=== PATIENT | female | born 1930 | race Caucasian/White ===

== ENCOUNTER 2020-01-25 09:08 | Observation (INO) | payer MEDICARE, OTHER ==
[2020-01-25 09:54] LABS: #Eosinphils 0.1 thou/uL (0.0-0.7); #Lymphocytes 0.8 thou/uL (1.20-3.40); #Monocytes 0.4 thou/uL (0.11-0.59); #Neutrophils 5.1 thou/uL (1.40-6.50); %Basophils 0.5 % (0.0-1.0); %Eosinophils 1.1 % (0.0-10.0); %Lymphocytes 12.6 % (21.0-51.0); %Monocytes 5.6 % (0.0-10.0); %Neutrophils 80.2 % (42.0-75.0); Hemoglobin 12.9 g/dL (12.0-16.0); Mean Corpuscular HGB CONC 31.5 g/dL (32.0-36.0); Mean Corpuscular Volume 85.6 fL (78.0-98.0); Mean Platelet Volume 9.4 fL (7.4-10.4); Platelet Count 168 thou/uL (130-400); RBC Distribution Width 13.8 % (11.5-14.5); Red Blood Cell (RBC) Count 4.77 mill/uL (4.20-5.40); White Blood Cell (WBC) Count 6.4 thou/uL (4.8-10.8)
[2020-01-25 10:01] LABS: INR-International Normal Ratio 1.3; PTT 28.9 sec (22.9-36.1); Prothrombin Time 16.8 sec (12.0-14.7)
--- NOTE | 2020-01-25 10:01 | RAD ---
AP CHEST: Date: 01/25/2020 HISTORY: Syncope. No comparison. FINDINGS: There are small bilateral effusions, slightly larger on the left. No evidence of vascular congestion or edema. Heart size upper normal. There are prominent chronic appearing parenchymal changes in the upper lung zavala and there are scat tered small nodules in both upper lobes measuring in the 3-5 mm range. Mitral annular calcification. Osseous structures unremarkable. IMPRESSION: 1. Small bilateral effusions, slightly larger on the left, with evidence of left basilar atelectasis . 2. Chronic appearing lung parenchymal changes in the upper lobes with scattered small pulmonary nodu les, probably granuloma. Recommend continued follow-up to ensure stability. POS: AH
[2020-01-25 10:22] LABS: ALT (SGPT) 17 U/L (8-55); AST (SGOT) 30 U/L (5-34); Albumin 3.7 g/dL (3.4-4.8); Alkaline Phosphatase 86 U/L (40-110); Anion Gap 10 mmol/L (10-20); BUN (Urea Nitrogen) 20 mg/dL (9.8-20.1); Bilirubin, Total 0.5 mg/dL (0.2-1.2); Calc. Creatinine Clearance 0 mL/min (70-130); Calcium 8.9 mg/dL (7.8-10.44); Carbon Dioxide 25 mmol/L (23-31); Chloride 99 mmol/L (98-107); Estimated GFR-MDRD 48; Globulin 3.7 g/dL (2.4-3.5); Glucose 114 mg/dL (83-110); Lipase 91 U/L (8-78); Potassium 4.7 mmol/L (3.5-5.1); Protein, Total 7.4 g/dL (6.0-8.3); Sodium 129 mmol/L (136-145)
[2020-01-25] MEDS ORDERED: Iopamidol-370 76% 500 ML 1 ML ONE (10:51)
--- NOTE | 2020-01-25 11:00 | CT ---
CT Abdomen Pelvis W Con: 01/25/2020 10:45 AM CLINICAL INFORMATION: Abdominal pain and constipation COMPARISON: None. TECHNIQUE: Multiple contiguous axial images were obtained and a CT of the abdomen and pelvis with IV contrast. C oronal and sagittal reformats were performed. FINDINGS: Lower Chest: Trace left pleural effusion with adjacent atelectasis. Calcifications in the mitral valv e. Abdomen: Liver: within normal limits. Bile Ducts: Mildly enlarged likely secondary to a reservoir effect from prior cholecystectomy Gallbladder: Removed Pancreas: within normal limits. Spleen: within normal limits. Adrenals: within normal limits. Kidneys: within normal limits. Pelvis: Reproductive Organs: Status post hysterectomy. Ureters: within normal limits. Bladder: within normal limits. Peritoneum: No ascites or free air, no fluid collection. Bowel: Normal caliber. Moderate stool retention is seen in the distal colon. Fluid is seen in the mor e proximal colon which is mildly enlarged. The small bowel is normal in caliber. Mesentery and Retroperitoneum: No enlarged mesenteric or retroperitoneal lymph nodes. Vessels: Atherosclerotic calcifications. Abdominal Wall: within normal limits. Bones: Degenerative changes in the spine. IMPRESSION: 1. Moderate stool retention in the colon with mildly enlarged fluid-filled proximal colon. 2. Trace left pleural effusion with adjacent atelectasis
--- NOTE | 2020-01-25 11:10 | CT ---
CT CERVICAL SPINE WITHOUT CONTRAST: Date: 01/25/2020 INDICATION: Fall with trauma. Injury to neck. FINDINGS: The cervical vertebra maintain normal height. There are moderate degenerative changes noted. Loss of disc space is prominent at the C6-7 level. Facet hypertrophy is prominent throughout the cervical spi ne. There is no evidence of cervical spine fracture identified. IMPRESSION: Degenerative changes of the cervical spine. No evidence of acute fracture. POS: AH
--- NOTE | 2020-01-25 11:29 | CT ---
Head CT without contrast 01/25/2020: COMPARISON: None available HISTORY: Syncopal episode with loss of consciousness TECHNIQUE: Axial CT imaging at 5 mm intervals from vertex through skull base without contrast FINDINGS: The imaged paranasal sinuses and mastoid air cells are well aerated. There is a focal area of soft tissue swelling in the right supraorbital region consistent with a scalp hematoma. No associated calvarial fracture is seen. There is no intracranial hemorrhage, midline shift, or mass effect. Periventricular hypodensity is no [place], evidence of small vessel disease. Cerebral volume loss is present. IMPRESSION: Cerebral volume loss and small vessel disease with no intracranial hemorrhage or displace d calvarial fracture. Scalp hematoma noted anteriorly in the right supraorbital region.
[2020-01-25 12:07] LABS: Bacteria/HPF None Seen HPF (None Seen); Bilirubin Negative (Negative); Blood, Urine Negative (Negative); Clarity Clear (Clear); Glucose, Urine (Dipstick) Normal (Negative); Ketone, Urine Negative (Negative); Leukocyte 250 Leu/uL (Negative); Nitrite Negative (Negative); Protein, Urine (Dipstick) Negative (Neg-Trace); RBC/HPF 0-3 HPF (0-3); Specific Gravity, Urine 1.017 (1.002-1.036); Squamous Epithelial 0-3 HPF (0-3); Urobilinogen Normal mg/dL (Less than 2); pH, Urine 6.5 (5.0-9.0)
[2020-01-25 13:52] VITALS: BMI 13.6
[2020-01-25] MEDS ORDERED: Acetaminophen 325 MG TAB PO PRN ×2 (14:00→14:25)
[2020-01-25] MEDS ORDERED: Polyethylene Glycol 3350 17 GM Packet PO PRN (14:25)
--- NOTE | 2020-01-25 15:16 | HP ---
CHIEF COMPLAINT: Passed out. HISTORY OF PRESENT ILLNESS: This is an 89-year-old female with history of atrial fibrillation, on full anticoagulation, hypothyroidism, hypertension, allergies, GERD, diagnosis of cervical cancer, which has been untreated, chronic respiratory failure on home oxygen, who presents to the emergency room after a syncopal event today. The patient reports that she has been having problems with constipation over the past 4 days. She went to the commode and attempted to have a bowel movement, however, had very little output. After which, she stood up to go back to bed, felt weak and had a syncopal event. She landed on the right side of her face, reports that she was shaking, weak, felt pale after falling. She has also vomited twice. The patient reports a history of a syncopal event over 10 years ago at which time she was diagnosed with atrial fibrillation. She was recently evaluated in the clinic and reports that her cardiac medications were changed. She also notes that she has had low blood pressures in the 90s systolic at home. For bowel movement, the patient reports taking a laxative and complains of abdominal cramping now. In the emergency room, the patient received a tetanus vaccine, Zofran 4 mg, normal saline 500 mL and hospitalist called for admission. ALLERGIES: TAPE. CURRENT MEDICATIONS: Reconciled with the patient, 1. Amiodarone 200 mg b.i.d. 2. Carvedilol 3.125 mg b.i.d. 3. Eliquis 2.5 mg b.i.d. 4. Levothyroxine 75 mcg daily. 5. Lisinopril 2.5 mg daily. 6. Omeprazole 20 mg daily. 7. Potassium chloride 20 mEq daily. 8. Spironolactone 25 mg daily. 9. Montelukast 10 mg daily. 10. Torsemide 10 mg daily. PAST MEDICAL HISTORY: 1. Heart murmur, unknown type. 2. Congestive heart failure, unknown type. 3. Atrial fibrillation. 4. Hypothyroidism. 5. Hypertension. 6. Chronic respiratory failure, on oxygen. 7. History of pneumonia and pleural effusions. 8. Hypothyroid. 9. GERD. 10. Allergies. 11. Diagnosis of cervical cancer - she reports diagnosis this year and no follow-up obtained. PAST SURGICAL HISTORY: 1. Bilateral cataracts. 2. . SOCIAL HISTORY: The patient denies alcohol or tobacco. Her surrogate decision maker is her daughter, Cely Spain. She is a full code. FAMILY HISTORY: Significant for mom who had heart problems. REVIEW OF SYSTEMS: Weight loss over several months, the patient reports 30 to 40 pounds. Vomiting after the fall today, headache after the fall today and abdominal cramping. All remaining review of systems are reviewed and negative. PHYSICAL EXAMINATION: VITAL SIGNS: Blood pressure 114/56, temperature 98.3, pulse 66, respirations 20, and saturation 97% on room air. GENERAL: Awake, alert, responsive, in no apparent distress. Cachectic appearing. HEENT: Hematoma around her right eyebrow. Pupils are equal and round. Oral mucosa is pink, appears dry. NECK: Supple, nontender. LYMPHATICS: No palpable cervical or supraclavicular lymphadenopathy. LUNGS: Clear to auscultation bilateral. No audible wheezing, rhonchi, or rales. HEART: Normal S1, S2. Regular rate and rhythm. 3/6 systolic ejection murmur most audible at the right upper sternal border. ABDOMEN: Soft. Present bowel sounds. Nontender. Nondistended. EXTREMITIES: No clubbing, cyanosis, or edema. VASCULAR: 2+ dorsalis pedis pulses. NEUROLOGIC: No focal deficits. PSYCHIATRIC: Appears euthymic. Alert and oriented. IMAGING DATA: EKG personally reviewed, sinus bradycardia with a rate of 53, normal axis, first-degree AV block, prolonged QT interval and abnormal R-wave progression. LABORATORY DATA: Labs reviewed. CBC 6.4, 12.9, 40.8, 168 with 80% neutrophils, 12% lymphocytes. INR is 1.3. Renal panel 129, 4.7, 99, 25, 20, 1.08, 114. Calcium 8.9, T bilirubin 0.5, AST 30, ALT 17, alkaline phosphatase 86, total protein 7.4, albumin 3.7. Urinalysis, 250 leukocyte esterase, 11 to 20 white blood cells. Chest x-ray personally reviewed, small bilateral pleural effusions, left greater than right with left basilar atelectasis, chronic-appearing lung parenchymal changes in the upper lobes with scattered small pulmonary nodules. CT abdomen and pelvis shows moderate stool retention in the colon with mildly enlarged fluid-filled proximal colon. Trace pleural effusion with adjacent atelectasis. CT of the brain without contrast, cerebral volume loss and small vessel disease. No intracranial hemorrhage or displaced fracture. Scalp hematoma in the right supraorbital region. CT C-spine degenerative changes. No acute fracture. IMPRESSION: 1. Syncopal event in a patient with multiple possibilities for etiology-atrial fibrillation, hypotension, hyponatremia, heart murmur consistent with aortic stenosis, chronic respiratory failure, possible hypoxia, cervical cancer diagnosis. 2. Paroxysmal atrial fibrillation, currently with sinus bradycardia, full anticoagulation. Pt also has a heart murmur c/w Aortic Stenosis. 3. Hypothyroidism, on replacement therapy, unknown if adequate. 4. Hypertension with reported hypotension at home. 5. Hyponatremia, the patient appears slightly hypovolemic, likely secondary to today's events. 6. Chronic pleural effusions. 7. Chronic respiratory failure, unknown etiology. 8. Reported cervical cancer diagnosis - untreated with unintentional weight loss. 9. Likely urinary tract infection. 10. Prolonged QT interval. PLAN: 1. Observation status in the hospital. 2. Echocardiogram, telemetry monitoring, and Cardiology consult. 3. Ordering her home medications with hold parameters to avoid hypotension. Anticipate these medications will need to be adjusted. 4. Urine studies for the hyponatremia. 5. TSH to see if she is on adequate thyroid hormone replacement. 6. Initiating Rocephin and ordering a urine culture. 7. Avoiding medications that can prolong the QT interval. 8. Continuing her other home medications as ordered and oxygen supplementation. 9. Follow-up needed as an outpatient for the reported diagnosis of cervical cancer. 10. DVT prophylaxis not indicated, she is on Eliquis. 11. GI prophylaxis not indicated, she is on a PPI at home, we will continue that. 12. Code status is full. Surrogate decision maker is the patient's daughter. 13. Anticipated length of stay is 1 midnight. 14. Reviewed the plan of care with the patient who demonstrates understanding and agrees. No questions or further needs at the end of evaluation. 15. The patient is at high risk given age, comorbidities, and current presentation. Job ID: [id number] MTDD
[2020-01-25 15:34] LABS: Creatinine, Urine Less than 20.00 mg/dL (47-110); Sodium, Urine 70 mmol/L (Not Available)
[2020-01-25] MEDS ORDERED: cefTRIAXone\\ROCEPHIN 1 GM in Sodium Chloride 0.9% 100 ML IVPB SCH (16:00)
[2020-01-25] MEDS: Carvedilol 3.125 MG TAB PO SCH (16:16)
[2020-01-25] MEDS ORDERED: Fleet Enema 133 ML BOT PR SCH (18:00)
[2020-01-25] MEDS: Montelukast Sodium 10 mg Tablet PO SCH (21:15)
[2020-01-25] MEDS: Senokot S 8.6-50 MG TAB PO SCH (21:15)
[2020-01-25] MEDS: Apixaban 2.5 MG TAB PO SCH (21:15)
[2020-01-25] MEDS ORDERED: Sodium Chloride 0.9% 250 ML IV SCH (22:00)
--- NOTE | 2020-01-25 22:21 | CON ---
DATE OF CONSULTATION: 01/25/2020 INDICATION FOR CONSULTATION: An 89-year-old female with syncope. HISTORY OF PRESENT ILLNESS: This very unfortunate 89-year-old female but very pleasant, was an evacuee from [place] and has been staying here with her daughter. She has become constipated. She says she has not had a bowel movement for the last 4 days. She was in the toilet earlier today and was straining to have a bowel movement, which she was unsuccessful. Then, she started to stand up and apparently had a syncopal episode. She hit her right orbital area and the eyebrow area and since that time has been admitted. She does have a history of atrial fibrillation in the past. She has been on amiodarone as well as Eliquis and Coreg. At this time, her EKG does not show atrial fibrillation. She is in a sinus rhythm with some mild bradycardia, but otherwise, unremarkable EKG. Her heart rates have been in the 60s since being admitted to the hospital. At this time, she denies any chest pain. She denies any other previous cardiac history except for the atrial fibrillation, which she apparently was diagnosed about 10 years ago after having another syncopal episode and apparently had a CVA at that time. It is unclear as to whether or not she actually had a syncopal episode due to the CVA, but apparently was diagnosed in 2007 with the CVA. At that time, she had been out cutting the grass, it was very hot. She said she went inside. When she went inside, she passed out and then eventually was taken to the emergency room where she was found to have suffered a CVA. At this time, she remains relatively stable without any complaints except that she still remains constipated. PAST MEDICAL HISTORY: Significant for: 1. CVA in 2007. 2. Syncopal episodes now x2. 3. She has some mild residual left-sided weakness in the left arm and left leg. 4. She has a history of atrial fibrillation. 5. She has glaucoma. 6. Macular degeneration. 7. She says she has a diagnosis of COPD. 8. She has frequent pneumonias. 9. She has had respiratory syncytial virus. 10. She has hypothyroidism. 11. Gastroesophageal reflux disease. 12. She has a history of cervical cancer, and from my understanding, this has not yet been treated. 13. She has had a in the past. ALLERGIES: THERE ARE NO KNOWN DRUG ALLERGIES. MEDICATIONS: 1. Amiodarone 200 mg a day. 2. Eliquis 2.5 mg b.i.d. 3. Coreg 3.125 mg b.i.d. 4. Levothyroxine 75 mcg daily. 5. Lisinopril 2.5 mg a day. 6. Omeprazole 20 mg a day. 7. Potassium 20 mEq a day. 8. Aldactone 25 mg a day. 9. Montelukast 10 mg a day. 10. Torsemide 10 mg a day. SOCIAL HISTORY: As noted, she is a refugee from [place]. She had been living alone previously to that. She denies any alcohol or tobacco abuse. She is now living with her daughter. FAMILY HISTORY: Noncontributory at this time. Her mother did have some heart problems. REVIEW OF SYSTEMS: She has lost more weight, but found has gained a few pounds since being here living with her daughter. She says she has never weighed over 120 pounds. At this time, she weighs only about 90 pounds. She had lost down to about 87 pounds apparently according to the daughter, but has been able to gain a little bit more weight, but she does not have a very good appetite. Otherwise, review of systems; she has had no significant complaints except what is noted in the history of present illness. She does occasionally have some lower extremity edema if she does not take her medications. PHYSICAL EXAMINATION: GENERAL: Reveals an elderly very pleasant female who is in no acute distress at this time. She has a bandage over the right orbital area after falling and she has obvious ecchymosis around that area with a hematoma forming. Otherwise HEENT exam was unremarkable. NECK: Carotid pulses are present without bruits. CHEST: Clear to auscultation. There were no rales, rhonchi, or wheezing noted. CARDIOVASCULAR: Revealed a regular rate and rhythm. She has a systolic murmur heard over the entire precordium, loudest over the aortic area. There were no heaves or thrills noted. ABDOMEN: Soft and nontender. Positive bowel sounds are present. There was no organomegaly or masses noted. No tenderness. EXTREMITIES: Show no clubbing, cyanosis, or edema at this time. She is a very thin elderly female. Her pulses are present. SKIN: Warm and dry. NEUROLOGIC: She appears to be grossly intact. She does have some minimal left-sided weakness, almost difficult to determine the difference between the right and left side. LABORATORY DATA: Shows WBC of 6.4, hemoglobin 12.9, platelet count 168,000. Her sodium is 129, potassium 4.7, BUN was 20, creatinine 1.08, and blood sugar 114. Her INR is 1.3. Chest x-ray, she has small bilateral pleural effusions. The one on the left is little bit larger than one on the right. She has mild atelectasis on the left side. She has chronic upper lobe changes, most likely due to old granulomas. She did have a CT of the brain performed earlier today, which did show some aging loss of the volume in cerebral areas, she did have some small-vessel disease, but there was no evidence of any intracranial bleeding. IMPRESSION: 1. Elderly female, 89-year-old with syncopal episode this morning after straining for a bowel movement. Most likely, this indicates a vasovagal episode. However, she does have a history of atrial fibrillation. She may have been in atrial fibrillation and could have converted back to sinus rhythm, which she is in now and could have had a pause during that time, but at this time, she remains in a sinus rhythm. We will continue to monitor very carefully for any arrhythmias or further atrial fibrillation. When she is discharged, she might benefit from having an event monitor. She certainly could have an implantable loop recorder placed. There has been some discussion in the past apparently with her scallop binder in [place] about possible pacemaker insertion, but she has not yet met criteria, and given her very thin stature, it will be certainly difficult in this elderly lady, but could be performed if necessary. 2. History of atrial fibrillation. She remains on amiodarone dose of 200 mg twice a day. We could decrease that down to once a day, especially since she looks like she is maintaining sinus rhythm, and I would continue her on Eliquis and Coreg as long as the blood pressure remains stable. Her blood pressure is stable at this time with a blood pressure 101/64. 3. History of deconditioning or poor weight. The family will try to encourage her to eat more. 4. History of chronic obstructive pulmonary disease. I am uncertain of this diagnosis, but she does have some abnormalities noted on the chest x-ray as explained earlier. 5. What appears to be a possible aortic valve stenosis or sclerosis. An echocardiogram is still pending. Further recommendations will depend on the results of the echocardiogram or whether or not she has any significant arrhythmias. Job ID: [id number]
[2020-01-26] MEDS: Amiodarone 200 MG TAB PO SCH ×2 (04:40→07:41)
[2020-01-26 05:35] LABS: #Monocytes 0.9 thou/uL (0.11-0.59); #Neutrophils 6.7 thou/uL (1.40-6.50); %Basophils 0.1 % (0.0-1.0); %Eosinophils 0.5 % (0.0-10.0); %Lymphocytes 11.1 % (21.0-51.0); %Monocytes 10.8 % (0.0-10.0); %Neutrophils 77.5 % (42.0-75.0); Hemoglobin 11.1 g/dL (12.0-16.0); Mean Corpuscular HGB CONC 31.5 g/dL (32.0-36.0); Mean Corpuscular Hemoglobin 26.8 pg (27.0-31.0); Mean Corpuscular Volume 85.1 fL (78.0-98.0); Mean Platelet Volume 10.1 fL (7.4-10.4); Platelet Count 153 thou/uL (130-400); Red Blood Cell (RBC) Count 4.16 mill/uL (4.20-5.40); White Blood Cell (WBC) Count 8.7 thou/uL (4.8-10.8)
[2020-01-26 05:53] LABS: Anion Gap 11 mmol/L (10-20); BUN (Urea Nitrogen) 24 mg/dL (9.8-20.1); Calc. Creatinine Clearance 27 mL/min (70-130); Carbon Dioxide 25 mmol/L (23-31); Chloride 102 mmol/L (98-107); Estimated GFR-MDRD 58; Glucose 88 mg/dL (83-110); Potassium 4.4 mmol/L (3.5-5.1); Sodium 134 mmol/L (136-145)
[2020-01-26] MEDS: Levothyroxine Sodium 75 MCG TAB PO SCH (06:26)
[2020-01-26] MEDS: Carvedilol 3.125 MG TAB PO SCH ×2 (07:38→17:55)
[2020-01-26] MEDS: Apixaban 2.5 MG TAB PO SCH ×2 (07:41→21:05)
[2020-01-26] MEDS: Torsemide 10 MG TAB PO SCH (07:41)
[2020-01-26] MEDS: Senokot S 8.6-50 MG TAB PO SCH ×2 (07:41→21:06)
[2020-01-26] MEDS ORDERED: Spironolactone 25 MG TAB PO SCH (08:00)
[2020-01-26] MEDS ORDERED: FLU VACC QS2020-21(65YR UP)/PF 240 MCG/0.7 ML SYRINGE IM ONE (09:00)
[2020-01-26] MEDS ORDERED: Lisinopril 2.5 MG TAB PO SCH (09:00)
[2020-01-26 11:38] LABS: SARS-CoV-2 MS2 Positive; SARS-CoV-2 N Gene Negative; SARS-CoV-2 S Gene Negative; SARS-CoV-2 by NAA Not Detected (NotDetected); SARS-CoV-2 orf1ab Negative
[2020-01-26] MEDS ORDERED: Sodium Chloride 0.9% 250 ML IV SCH (12:15)
--- NOTE | 2020-01-26 12:38 | PDOC.HOSPP ---
- Subjective Encounter Date: 01/26/20 Encounter Time: 10:30 Subjective: Patient seen and examined for syncope. Feels generally weak and fatigued. Had bowel movement last night. No chest pain or shortness of breath. - Objective Vital Signs & Weight: Vital Signs (12 hours) Temp Pulse Resp BP BP Pulse Ox 01/26/20 12:06 59 L 90/51 L 01/26/20 12:04 59 L 83/47 L 01/26/20 11:56 98.4 F 61 18 89/45 L 98 01/26/20 07:26 98 F 62 18 91/50 L 97 01/26/20 02:47 97.5 F L 65 12 105/57 L 97 Weight Weight 87 lb I&O: 01/25/20 01/26/20 01/27/20 06:59 06:59 06:59 Intake Total 830 Output Total 750 Balance 80 Result Diagrams: 01/26/20 04:23 01/26/20 04:23 Additional Labs: Accuchecks 01/25/20 21:46 POC Glucose 125 H Abnormal Lab Results - Last 48 hrs 01/25/20 09:38: MCHC 31.5 L, Neutrophils % 80.2 H, Lymphocytes % 12.6 L, Lymphocytes # 0.8 L 01/25/20 09:38: PT 16.8 H 01/25/20 09:38: Sodium 129 L, Globulin 3.7 H, Albumin/Globulin Ratio 1.0 L, Lipase 91 H 01/25/20 11:50: Ur Leukocyte Esterase 250 A, Urine WBC 11-20 A 01/25/20 11:50: Urine Osmolality 289 L 01/25/20 11:50: Urine Creatinine Less than 20.00 L 01/26/20 04:23: Sodium 134 L, BUN 24 H 01/26/20 04:23: RBC 4.16 L, Hgb 11.1 L, Hct 35.4 L, MCH 26.8 L, MCHC 31.5 L, Ne utrophils % 77.5 H, Lymphocytes % 11.1 L, Monocytes % 10.8 H, Neutrophils # 6.7 H, Lymphocytes # 1.0 L, Monocytes # 0.9 H Microbiology - Entire Visit 01/25/20 11:50 Urine clean catch Urine Culture - Preliminary Radiology Reviewed by me: Yes (CT brainreviewed) EKG Reviewed by me: Yes (Telemetry sinus rhythm with first-degree AV block) Hospitalist ROS - Review of Systems Cardiovascular: denies: chest pain, palpitations, orthopnea, paroxysmal noc. d yspnea, edema, light headedness, other Gastrointestinal: denies: nausea, vomiting, abdominal pain, diarrhea, constipation, melena, hematochezia, other - Medication Medications: Active Medications Generic Name Dose Route Start Last Admin Trade Name Freq PRN Reason Stop Dose Admin Acetaminophen 650 mg 01/25/20 14:25 01/25/20 16:16 Acetaminophen 325 Mg Tab PO 650 mg Q4H PRN Administration Headache/Fever/Mild Pain (1-3) Apixaban 2.5 mg 01/25/20 21:00 01/26/20 07:41 Apixaban 2.5 Mg Tab PO 2.5 mg BID JESSIE Administration Lactulose 20 gm 01/25/20 14:25 01/25/20 16:16 Lactulose 20 Gm/30 Ml Udcup PO 20 gm DAILYPRN PRN Administration Constipation Levothyroxine Sodium 75 mcg 01/26/20 06:00 01/26/20 06:26 Levothyroxine Sodium 75 Mcg Tab PO 75 mcg 0600 JESSIE Administration Montelukast Sodium 10 mg 01/25/20 21:00 01/25/20 21:15 Montelukast Sodium 10 Mg Tablet PO 10 mg QPM JESSIE Administration Pantoprazole Sodium 40 mg 01/26/20 09:00 01/26/20 07:41 Pantoprazole 40 Mg Tab PO 40 mg DAILY JESSIE Administration Senna/Docusate Sodium 1 tab 01/25/20 21:00 01/26/20 07:41 Senokot S 8.6-50 Mg Tab PO Not Given BID JESSIE Torsemide 10 mg 01/26/20 09:00 01/26/20 07:41 Torsemide 10 Mg Tab PO Not Given DAILY JESSIE - Exam General Appearance: ill appearing Neck: supple, no JVD Heart: RRR, no gallops, no rubs, murmur present Respiratory: no wheezes, no rales, no ronchi, normal chest expansion Gastrointestinal: soft, non-tender, non-distended, normal bowel sounds Extremities: no cyanosis, no clubbing, no edema Neurological: no new deficit Psychiatric: normal affect, A&O x 3 Hosp A/P - Plan Syncopesuspected to be due to orthostatic hypotension Scalp hematoma due to fall Paroxysmal atrial fibrillation on anticoagulation Hyponatremiaimproving Chronic hypoxic respiratory failure on home oxygen CKD stage III Plan: Discontinue IV ceftriaxone. Patient probably does not have UTI. Will check cortisol level. Patient is currently on Aldactone 25 mg daily however takes 6.25 mg at home. Will hold Aldactone for now. Will reduce amiodarone to once a day which is her actual home dose (patient currently on amiodarone 200 mg twice daily). Consult physical therapy. Fall precautions. Continue anticoagulation per cardiology. Await echocardiogram. Home health care evaluation.
[2020-01-26] MEDS: Artificial Tear Sol 15 ML BOT EA EYE SCH ×3 (12:59→21:06)
[2020-01-26] MEDS: Brinzolamide 1% Ophth SUSP 10 ml Bottle EA EYE SCH (21:05)
[2020-01-26] MEDS: Montelukast Sodium 10 mg Tablet PO SCH (21:05)
[2020-01-27] MEDS: Levothyroxine Sodium 75 MCG TAB PO SCH (04:59)
[2020-01-27 07:40] VITALS: BP 137/60; TEMP 98.4
[2020-01-27] MEDS: Carvedilol 3.125 MG TAB PO SCH (07:43)
[2020-01-27] MEDS: Senokot S 8.6-50 MG TAB PO SCH (07:44)
[2020-01-27] MEDS: Torsemide 10 MG TAB PO SCH (07:44)
[2020-01-27] MEDS: Artificial Tear Sol 15 ML BOT EA EYE SCH (07:45)
[2020-01-27] MEDS: Apixaban 2.5 MG TAB PO SCH (07:45)
[2020-01-27] MEDS: Brinzolamide 1% Ophth SUSP 10 ml Bottle EA EYE SCH (07:45)
[2020-01-27] MEDS ORDERED: Lisinopril 2.5 MG TAB PO SCH (09:00)
[2020-01-27] MEDS ORDERED: Amiodarone 200 MG TAB PO SCH (09:00)
--- NOTE | 2020-01-27 15:47 | DIS ---
DATE OF ADMISSION: 01/25/2020 DATE OF DISCHARGE: 01/27/2020 DISCHARGE DISPOSITION: To home. PRIMARY DISCHARGE DIAGNOSES: Syncope with scalp hematoma, likely due to moderate dehydration, resolved. History of chronic atrial fibrillation, in sinus rhythm. Chronic kidney disease, stage 3. History of cerebrovascular accident with mild left-sided weakness, which is chronic. History of chronic obstructive pulmonary disease. PROCEDURES DONE DURING HOSPITALIZATION: CT brain without contrast done, showed no acute intracranial hemorrhage or fractures. There was scalp hematoma seen in the right supraorbital region. CT abdomen and pelvis without contrast done, showed moderate stool retention in the colon with mildly enlarged fluid-filled proximal colon. CT cervical spine showed degenerative changes with no fractures. Chest x-ray done showed small bilateral pleural effusions, chronic lung parenchymal changes in both upper lobes. Echo with 2D Doppler showed EF of 60% to 65%. Aortic valve leaflets were somewhat thickened. H and H 11 and 35 platelet count 153, MCV is 85. BUN 24, creatinine 0.9, albumin 3.7. TSH 2.35. Cortisol 9.5. COVID-19 PCR on 01/25/2020, was not detected. DISCHARGE MEDICATIONS: 1. Amiodarone 200 mg p.o. daily. 2. Carvedilol 3.125 mg twice daily. 3. Demadex 10 mg p.o. daily. 4. Eliquis 2.5 mg twice daily. 5. Omeprazole 20 mg daily. 6. Potassium gluconate 99 mg p.o. daily. 7. Singulair 10 mg p.o. daily. 8. Synthroid 75 mcg p.o. daily. 9. Albuterol nebulizer q.8 hourly p.r.n. 10. Lisinopril 2.5 mg daily. 11. MiraLAX 17 g p.o. daily. 12. Azopt eye drops to both eyes as before. ALLERGIES: NO KNOWN DRUG ALLERGIES. INPATIENT CONSULT: Dr. Iyer for Cardiology. DISCHARGE PLAN: The patient to follow up with her primary care physician in [place] in 1 to 2 weeks. She needs to follow up with Dr. Iyer in 1 week. BRIEF COURSE DURING HOSPITALIZATION: The patient initially got admitted on the , after she passed out and hit her right side of her face. The patient also vomited twice prior to arrival. In view of this history, the patient was admitted to telemetry. She has had close monitoring done. Ms. Gavin did not have any arrhythmias noted on the telemetry or on her initial EKG. She has known history of chronic atrial fibrillation, but was in sinus rhythm. She had moderate dehydration, which has resolved with fluid hydration. Her spironolactone has been discontinued. She was evaluated by Dr. Iyer for Cardiology as well. The patient likely will have an event monitor, sent from Dr. Iyer' office. Multiple imaging studies have not shown any acute fractures or significant abnormality except for scalp hematoma on the right frontal area. She is ambulating freely in the room without any dizziness. I have given complete updates to the patient's daughter at bedside and the patient as well. Please note, I have seen and examined the patient on the day of discharge. Job ID: [id number] [facility]
== END 2020-01-27 12:14 | disposition home or self-care (01) ==
LOC: ERS 09:08 → 2SW 13:41
PROVIDERS: ADMIT Family Medicine; ATTEND Family Medicine
PROC: 0HQ1XZZ Repair Face Skin, External Approach (ICD-10-PCS; principal; 2020-01-25)
DX: S00.03XA Contusion of scalp, initial encounter (principal); R55 Syncope and collapse; E86.0 Dehydration; I48.0 Paroxysmal atrial fibrillation; E03.9 Hypothyroidism, unspecified; J96.11 Chronic respiratory failure with hypoxia; I95.9 Hypotension, unspecified; I13.0 Hypertensive heart and chronic kidney disease with heart failure and stage 1 through stage 4 chronic kidney disease, or unspecified chronic kidney disease; N18.30 Chronic kidney disease, stage 3 unspecified; I50.9 Heart failure, unspecified; M47.812 Spondylosis without myelopathy or radiculopathy, cervical region; K21.9 Gastro-esophageal reflux disease without esophagitis; C53.9 Malignant neoplasm of cervix uteri, unspecified; J44.9 Chronic obstructive pulmonary disease, unspecified; E87.1 Hypo-osmolality and hyponatremia; J90 Pleural effusion, not elsewhere classified; I45.81 Long QT syndrome; I69.354 Hemiplegia and hemiparesis following cerebral infarction affecting left non-dominant side; Z79.01 Long term (current) use of anticoagulants; Z79.899 Other long term (current) drug therapy; Z20.828 Contact with and (suspected) exposure to other viral communicable diseases; W18.30XA Fall on same level, unspecified, initial encounter
CPT/HCPCS: 12011; 70450; 71045; 72125; 74177; 80048; 82533; 82570; 82962; 83690; 83935; 84300; 84484; 85025; 85610; 85730; 87086; 90662; 93005; 93306; 94760; 97116; 97139; 99285; G0008; U0003; 36415; 36416; 80053; 81003; 81015; 84443; 87635; 90471; 96365; G0378; J0696; J3490; Q9967